=== PATIENT | female | born 1980 ===

== ENCOUNTER 2017-10-22 02:26 | Emergency (ER) | payer SELFPAY ==
[2017-10-22 03:06] VITALS: BP 115/79; PULSE 68; RESP 16; TEMP 98.2; O2SAT 98
[2017-10-22 03:24] LABS: HCG,QUALITATIVE URINE NEGATIVE (NEGATIVE)
[2017-10-22 03:25] LABS: SQUAMOUS EPITHIAL < 1 /hpf (0-5); URINE BILIRUBIN NEGATIVE (NEGATIVE); URINE BLOOD NEGATIVE (NEGATIVE); URINE CLARITY Clear (Clear); URINE COLOR Colorless (YELLOW); URINE GLUCOSE (UA) NORMAL (Normal); URINE LEUKOCYTE ESTERASE NEG Leu/uL (Negative); URINE PROTEIN NEGATIVE (NEGATIVE); URINE UROBILINOGEN NORMAL mg/dL (0.2-1.0)
--- NOTE | 2017-10-22 03:27 | C.PDOC ---
History Of Present Illness 37 y/o female presents to the ER with intermittent burning epigastric pain for 4 -5 days. The patient also complains of associated nausea. She denies any dysuria , diarrhea or vomiting. Time Seen by Provider: 10/22/17 03:25 Chief Complaint (Nursing): Abdominal Pain History Per: Patient History/Exam Limitations: no limitations Onset/Duration Of Symptoms: Days Location Of Pain/Discomfort: Epigastric Quality Of Discomfort: Burning Past Medical History Vital Signs: Last Vital Signs Temp 98.2 F 10/22/17 02:53 Pulse 68 10/22/17 02:53 Resp 16 10/22/17 02:53 BP 115/79 10/22/17 02:53 Pulse Ox 98 10/22/17 04:08 Other Surgeries: Left ovarian cyst removed 2001, abdominoplasty Family History: States: Unknown Family Hx - Social History Hx Alcohol Use: Yes Hx Substance Use: No - Immunization History Hx Influenza Vaccination: No Hx Pneumococcal Vaccination: No Review Of Systems Except As Marked, All Systems Reviewed And Found Negative. Constitutional: Negative for: Fever Gastrointestinal: Positive for: Nausea. Negative for: Diarrhea Genitourinary: Negative for: Dysuria Physical Exam - Physical Exam Appears: Non-toxic, No Acute Distress Skin: Normal Color, Warm, Dry Head: Atraumatic, Normacephalic Eye(s): bilateral: PERRL, EOMI Ear(s): Bilateral: Normal Nose: Normal Oral Mucosa: Moist Neck: Normal ROM, Supple Cardiovascular: Rhythm Regular Respiratory: Normal Breath Sounds, No Rales, No Rhonchi, No Wheezing Gastrointestinal/Abdominal: Normal Exam, Soft, Tenderness (epigastric), No Guarding, No Rebound Extremity: Normal ROM Extremity: Bilateral: Atraumatic Pulses: Left Dorsalis Pedis: Normal, Right Dorsalis Pedis: Normal Neurological/Psych: Oriented x3 ED Course And Treatment - Laboratory Results Result Diagrams: 10/22/17 03:59 10/22/17 03:59 O2 Sat by Pulse Oximetry: 98 (RA) Pulse Ox Interpretation: Normal Medical Decision Making Medical Decision Making: Impression: 37 y/o with epigastric pain Plan: --CMP --Lipase --CBC --UA -- Urine --IV Fluids --Carafate Tab 1 gm PO --Protonix Inj IV Disposition Counseled Patient/Family Regarding: Diagnosis - Disposition Referrals: [facility] at [facility] [Outside] Disposition: HOME/ ROUTINE Disposition Time: 04:21 Condition: STABLE Prescriptions: Famotidine [Pepcid] 20 mg PO ASDIR #30 tab Sucralfate [Carafate] 1 gm PO BID #30 tab Instructions: Gastritis, Ulcer and Gastritis Diet Forms: [facility] (Ugandan), Gen Discharge Inst Rwandan Print Language: ESTONIAN - POA Present On Arrival: None - Clinical Impression Clinical Impression: Gastritis and duodenitis - Scribe Statement The provider has reviewed the documentation as recorded by the Scribe (Deanna Hernandez) Provider Attestation: All medical record entries made by the Scribe were at my direction and personally dictated by me. I have reviewed the chart and agree that the record accurately reflects my personal performance of the history, physical exam, medical decision making, and the department course for this patient. I have also personally directed, reviewed, and agree with the discharge instructions and disposition.
[2017-10-22] MEDS ORDERED: Sodium Chloride 0.9% 1,000 ML IV ONE (03:31)
[2017-10-22 04:02] LABS: BASO # 0.1 K/uL (0.0-0.2); BASO % 0.9 % (0.0-2.0); EOS # 0.4 K/uL (0.0-0.7); EOS % 3.6 % (0.0-4.0); HEMOGLOBIN 13.6 g/dL (11.0-16.0); LYMPH # 3.2 K/uL (1.0-4.3); LYMPH % 31.8 % (20.0-40.0); MEAN CELL VOLUME 90.4 fL (81.0-99.0); MEAN CORPUSCULAR HEMOGLOBIN 31.3 pg (27.0-31.0); MEAN CORPUSCULAR HGB CONC 34.7 g/dL (33.0-37.0); MEAN PLATELET VOLUME 8.1 fL (7.2-11.7); MONO # 0.9 K/uL (0.0-0.8); MONO % 8.8 % (0.0-10.0); NEUT # 5.4 K/uL (1.8-7.0); NEUT % 54.9 % (50.0-75.0); RBC 4.35 Mil/uL (3.80-5.20); RED CELL DISTRIBUTION WIDTH 12.6 % (11.5-14.5); WHITE BLOOD COUNT 9.9 K/uL (4.8-10.8)
[2017-10-22 04:14] LABS: ALB/GLOB RATIO 1.3 (1.0-2.1); ALBUMIN 4.6 g/dL (3.5-5.0); ALT/SGPT 29 U/L (9-52); AST/SGOT 34 U/L (14-36); BLOOD UREA NITROGEN 11 mg/dL (7-17); CALCIUM 9.7 mg/dl (8.6-10.4); GFR AFRICAN-AMERICAN > 60; GFR NON-AFRICAN AMERICAN > 60; LIPASE 123 U/L (23-300)
== END 2017-10-22 04:49 | disposition home or self-care (01) ==
LOC: C.ER 02:26
DX: K29.70 Gastritis, unspecified, without bleeding (principal); K29.80 Duodenitis without bleeding
CPT/HCPCS: 80053; 81001; 83690; 84703; 85025; 96374; 99284; C9113; J7030